=== PATIENT | female | born 1985 | race Two or more races ===

== ENCOUNTER 2019-01-26 10:55 | Inpatient (IN) | payer MEDICARE, MEDICAID ==
[2019-01-26] MEDS ORDERED: Meropenem 500 MG SDV ONE (11:17)
[2019-01-26] MEDS ORDERED: Dexamethasone 4 MG/ML SDV ONE (11:30)
[2019-01-26] MEDS ORDERED: Rocuronium 50 MG/5 ML Vial ONE ×2 (11:30)
[2019-01-26] MEDS ORDERED: Ondansetron 4 MG/2 ML SDV ONE (11:30)
[2019-01-26] MEDS ORDERED: Succinylcholine 200 MG/10 ML MDV ONE (11:30)
[2019-01-26] MEDS ORDERED: Propofol 200 MG/20 ML SDV ONE (11:30)
[2019-01-26] MEDS ORDERED: fentaNYL 100 MCG/2 ML SDV ONE (11:30)
[2019-01-26] MEDS ORDERED: Neostigmine Methylsulfate 1 MG/ML 5 ML Syringe ONE (11:30)
[2019-01-26] MEDS ORDERED: fentaNYL 250 MCG/5 ML SDV ONE ×2 (11:30)
[2019-01-26] MEDS ORDERED: Glycopyrrolate 0.2 MG/ML 5 ML MDV ONE (11:30)
[2019-01-26] MEDS ORDERED: Labetalol 20 MG/4 ML Syringe ONE (11:30)
[2019-01-26] MEDS ORDERED: cefOXitin 2 GM in Sodium Chloride 0.9% 50 ML IV ONE (12:00)
[2019-01-26] MEDS ORDERED: hydrOXYzine HCl 100 MG/2 ML SDV IM ONE (13:26)
[2019-01-26] MEDS ORDERED: diphenhydrAMINE 50 MG/ML SDV IVPUSH PRN ×2 (13:29→14:23)
[2019-01-26] MEDS ORDERED: Ondansetron 4 MG/2 ML SDV IVPUSH PRN ×2 (13:29→14:23)
[2019-01-26] MEDS ORDERED: Naloxone 0.4 MG/ML SDV IVPUSH PRN (13:29)
[2019-01-26] MEDS ORDERED: diphenhydrAMINE 25 MG Cap PO PRN (13:29)
[2019-01-26] MEDS ORDERED: Lactated Ringers 1,000 ML IV SCH (13:30)
[2019-01-26] MEDS ORDERED: HYDROmorphone/Normal Saline 15 MG/30 ML PCA IV PRN (13:30)
[2019-01-26] MEDS ORDERED: hydrOXYzine HCl 100 MG/2 ML SDV IM PRN (14:23)
[2019-01-26] MEDS ORDERED: Labetalol 20 MG/4 ML Syringe IVPUSH PRN (14:23)
[2019-01-26] MEDS ORDERED: Albuterol/Ipratropium 3.0-0.5 MG/3 ML Neb Soln INH PRN (14:23)
[2019-01-26] MEDS ORDERED: Metoclopramide 10 MG/2 ML SDV IVPUSH PRN (14:23)
[2019-01-26] MEDS: Dextrose 5%-Lactated Ringers 1,000 ML IV SCH ×2 (14:36→22:17)
[2019-01-26] MEDS ORDERED: Naloxone 0.4 MG/ML SDV IV PRN (14:48)
--- NOTE | 2019-01-26 15:10 | CRLCR ---
Indication: Central line placement Technique: Chest 1 view Comparison: None. Findings/Impression: Cardiovascular and mediastinum: Left IJ central line has been placed with the tip in the right atrium. The line should be retracted 4 cm to be in ideal position. Moderate cardiomegaly. Pulmonary vasculature within normal limits. Lungs and pleural space: Lungs are clear. No sign of infiltrate or mass. No sign of pleural effusion. No pneumothorax. Bones and soft tissues: No acute findings. Dictated by Thomas Wells MD @ 01/26/2019 3:10:02 PM Dictated by: Thomas Wells MD @ 01/26/2019 15:10:07 (Electronically Signed)
[2019-01-26] MEDS ORDERED: MVI, Adult with Vitamin K 10 ML, Thiamine 200 MG, Chromium/Copper/Mang/Selen/Zn 1 ML in... IV SCH ×4 (16:00)
[2019-01-26] MEDS: Pantoprazole 40 MG Vial IVPUSH SCH (16:33)
[2019-01-26] MEDS: Acetaminophen Soln 650 MG/20.3 ML UD Cup PO SCH ×2 (16:33→22:27)
[2019-01-26] MEDS: cefOXitin 2 GM in Sodium Chloride 0.9% 50 ML IV SCH ×2 (17:09→22:28)
[2019-01-26] MEDS: Heparin Sodium 5,000 Units/ML Vial SUBCUT SCH (18:07)
[2019-01-26] MEDS: Gabapentin 250 MG/5 ML Solution ML 470 ML Bottle PO SCH (20:24)
[2019-01-26] MEDS: traZODone 50 MG Tab PO SCH (20:25)
[2019-01-26] MEDS: risperiDONE 1 MG Tab PO SCH (20:25)
[2019-01-26] MEDS: Divalproex Sodium Delayed-Release 250 MG Tab.CR PO SCH (20:25)
[2019-01-27] MEDS ORDERED: Iopamidol 612 MG/ML 50 ML SDV PO STA (03:23)
[2019-01-27] MEDS: Dextrose 5%-Lactated Ringers 1,000 ML IV SCH ×2 (03:32→20:52)
[2019-01-27] MEDS: cefOXitin 2 GM in Sodium Chloride 0.9% 50 ML IV SCH ×4 (04:31→23:32)
[2019-01-27] MEDS: Acetaminophen Soln 650 MG/20.3 ML UD Cup PO SCH ×4 (04:31→23:19)
[2019-01-27] MEDS: Heparin Sodium 5,000 Units/ML Vial SUBCUT SCH ×2 (05:12→16:59)
--- NOTE | 2019-01-27 06:57 | CRLCR ---
INDICATION: History of Marti-en-Y gastric bypass. Recent small bowel resection for volvulus. Question postoperative leak. TECHNIQUE: Three erect images are acquired of the abdomen following oral contrast administration. FINDINGS: The initial image demonstrates tertiary wave contractures within barium filled distal esophagus. There is passage of contrast material from the gastric pouch into the Marti limb. The 2 subsequent images demonstrate free passage of contrast through the small intestine without evidence of leak or pathologic dilatation which would indicate obstruction. IMPRESSION: No leak identified. Dictated by Mikal Andre MD @ 01/27/2019 6:55:48 AM Dictated by: Mikal Andre MD @ 01/27/2019 06:55:55 (Electronically Signed)
[2019-01-27 08:18] LABS: HEMOGLOBIN A1C 5.6 % (4.5-6.2)
[2019-01-27] MEDS: Gabapentin 250 MG/5 ML Solution ML 470 ML Bottle PO SCH ×3 (08:31→21:00)
[2019-01-27] MEDS: Amphetamine/Dextroamphetamine Salts 10 MG Tab PO SCH ×2 (08:32→13:25)
[2019-01-27] MEDS: Sodium Ferric Gluconate Cmplex 250 MG in Sodium Chloride 0.9% 100 ML IV SCH (08:32)
[2019-01-27] MEDS: Docusate Sodium 100 MG Cap PO SCH ×2 (08:32→21:00)
[2019-01-27] MEDS: Celecoxib 200 MG Cap PO SCH (08:32)
[2019-01-27] MEDS: Divalproex Sodium Delayed-Release 250 MG Tab.CR PO SCH ×3 (08:32→21:01)
[2019-01-27] MEDS: risperiDONE 1 MG Tab PO SCH ×2 (08:33→21:01)
[2019-01-27] MEDS: SCOPOLAMINE PATCH CHECK TOP SCH (08:55)
[2019-01-27] MEDS ORDERED: MVI, Adult with Vitamin K 10 ML, Chromium/Copper/Mang/Selen/Zn 1 ML in Dextrose 5%-Lact... IV ONE ×3 (10:00)
[2019-01-27] MEDS: Potassium Phosphates 15 MMOLE in Sodium Chloride 0.9% 250 ML IV SCH ×3 (10:03→16:58)
[2019-01-27] MEDS: Pantoprazole 40 MG Vial IVPUSH SCH (15:36)
[2019-01-27] MEDS: traZODone 50 MG Tab PO SCH (21:01)
[2019-01-28] MEDS: Acetaminophen Soln 650 MG/20.3 ML UD Cup PO SCH ×4 (03:58→22:44)
[2019-01-28] MEDS: Heparin Sodium 5,000 Units/ML Vial SUBCUT SCH ×2 (05:22→17:32)
[2019-01-28] MEDS: Dextrose 5%-Lactated Ringers 1,000 ML IV SCH (07:28)
[2019-01-28] MEDS ORDERED: Ondansetron 4 MG Tab.DIS PO PRN (08:15)
[2019-01-28] MEDS ORDERED: Magnesium Hydroxide 400 MG/5 ML Susp 30 ML Cup PO ONE (09:00)
[2019-01-28] MEDS ORDERED: Cyanocobalamin (Vitamin B12) 1,000 MCG/ML SDV IM ONE (09:00)
[2019-01-28] MEDS: Amphetamine/Dextroamphetamine Salts 10 MG Tab PO SCH ×2 (09:18→14:23)
[2019-01-28] MEDS: Divalproex Sodium Delayed-Release 250 MG Tab.CR PO SCH ×3 (09:18→20:16)
[2019-01-28] MEDS: Celecoxib 200 MG Cap PO SCH (09:18)
[2019-01-28] MEDS: Gabapentin 250 MG/5 ML Solution ML 470 ML Bottle PO SCH ×3 (09:18→22:44)
[2019-01-28] MEDS: SCOPOLAMINE PATCH CHECK TOP SCH (09:19)
[2019-01-28] MEDS: risperiDONE 1 MG Tab PO SCH ×2 (09:19→20:16)
[2019-01-28] MEDS ORDERED: Bisacodyl 5 MG Tab PO ONE (10:00)
[2019-01-28] MEDS: Sodium Ferric Gluconate Cmplex 250 MG in Sodium Chloride 0.9% 100 ML IV SCH (10:29)
[2019-01-28] MEDS: Docusate Sodium 100 MG Cap PO SCH ×2 (10:29→20:16)
--- NOTE | 2019-01-28 12:20 | HP ---
HISTORY OF PRESENT ILLNESS: This is a 33-year-old transferred to us, status post Marti-en-Y gastric bypass, who has not had any followup regarding that since her first postoperative visit. She presents now with severe abdominal pain. She was seen in the [facility] and CT scan there showed a picture of volvulus with probable small bowel ischemia, and the patient was transferred to our ER by air this morning. The patient reports that she has had similar, but lesser intense episodes over the past several weeks. PHYSICAL EXAMINATION: On examination, the patient is alert, hemodynamically stable, and thoroughly uncomfortable with regard to her abdominal pain. The abdomen is somewhat distended and uncomfortable, particularly in the left mid and upper abdomen. LABORATORY DATA: Otherwise, labs show no major problems. PLAN: The plan will be to emergently take the patient to the operating room. We will plan a limited open laparotomy with reduction of the volvulus and bowel resection as indicated. Potential risks including bleeding, infection, leaks from various GI tract closures, problems with recurrence of the problem over time, as well as the possibility of cardiopulmonary, septic, or hemorrhagic complications leading to were discussed, and the patient wishes to proceed. We will obtain a full set of followup bariatric labs today and tomorrow as well, for getting the patient hopefully back on track in that regard. Gaurav Mcadams MD /[id number]
[2019-01-28] MEDS ORDERED: Sodium Chloride 0.9% 10 ML Syringe IV PRN (12:26)
--- NOTE | 2019-01-28 13:47 | PN ---
DATE OF SERVICE: 01/28/2019 SUBJECTIVE: Adela is postop day 3. She states her pain is controlled. Vital signs, temp max of 99.6. Oral intake 2210. Urine output 1965 via Sultana catheter. REVIEW OF SYSTEMS: Remainder of review of systems negative for any pertinent positives and negatives. OBJECTIVE: GENERAL: Adela Ford is a 33-year-old female. VITAL SIGNS: TPR is 98.8, 82, 14. Blood pressure 136/61. HEENT: Negative. NECK: Supple. HEART: Regular rate and rhythm. LUNGS: Clear. ABDOMEN: Dressing dry and intact. Abdominal binder is on. EXTREMITIES: Without peripheral edema. ASSESSMENT: 1. Insertion of left triple-lumen catheter. 2. Exploratory laparotomy with reduction of small bowel volvulus and closure of internal hernia. 3. Revision of a jejunojejunostomy component of the Marti-en-Y gastric bypass surgery, repair of incarcerated incisional hernia, excision of eroded intraperitoneal mesh and tube decompression of small bowel and placement of Interceed mesh. Date of surgery 01/26/2019. PLAN: Type and screen for 2 units of packed red blood cells in a.m. Check CBC, CMP, mag, and phos in a.m. Saline lock IV. Discontinue Sultana catheter. Milk of Magnesia 30 mL now, followed in 1 hour by Dulcolax 2 tabs. Step 3 gastric bypass diet. Discontinue CLINICAL DATA ASSOCIATE Dilaudid 2 mg 1 to 2 every 4 hours p.r.n. pain. May shower. We will evaluate p.r.n. or in a.m. Karis Arce PA-C /[id number]
[2019-01-28] MEDS: HYDROmorphone 2 MG Tab PO PRN ×2 (14:52→20:01)
[2019-01-28] MEDS ORDERED: MVI, Adult with Vitamin K 10 ML, Thiamine 200 MG, Chromium/Copper/Mang/Selen/Zn 1 ML in... IV SCH ×4 (16:00)
[2019-01-28] MEDS: Pantoprazole 40 MG Delayed-Release Granules 1 Packet PO SCH (17:32)
[2019-01-28] MEDS: traZODone 50 MG Tab PO SCH (20:09)
[2019-01-29] MEDS: Heparin Sodium 5,000 Units/ML Vial SUBCUT SCH ×2 (05:39→17:10)
[2019-01-29] MEDS: Acetaminophen Soln 650 MG/20.3 ML UD Cup PO SCH ×4 (05:39→21:41)
[2019-01-29] MEDS: HYDROmorphone 2 MG Tab PO PRN ×5 (05:40→22:27)
--- NOTE | 2019-01-29 08:14 | PN ---
DATE OF SERVICE: 01/27/2019 The patient is postop day 1 from reduction of volvulus, as well as revision of jejunojejunostomy and stricturoplasty. Postoperatively, doing well. Urine output has been satisfactory. Sultana catheter will come out today, and I will back down on the IV rate and go up to a step 2 diet. We will leave her on the ELECTRIC MELT OPERATOR for today and probably switch over to oral pain medication tomorrow. Of note, her phosphate is on the low end of normal and just based on possible refeeding syndrome, we will give her some K-Phos IV today. Ferritin is quite low at 12, and she will receive 2 doses of the ferric gluconate 250 mg, 1 dose today and 1 dose tomorrow; and folate is also low, and we will replenish her with some IV trace elements during the hospitalization, and Dietary will be seeing the patient to try to get somewhat more back on track in terms of her postoperative bariatric status. Gaurav Mcadams MD /[id number]
[2019-01-29] MEDS: Celecoxib 200 MG Cap PO SCH (08:27)
[2019-01-29] MEDS: Gabapentin 250 MG/5 ML Solution ML 470 ML Bottle PO SCH ×3 (08:27→22:27)
[2019-01-29] MEDS: risperiDONE 1 MG Tab PO SCH ×2 (08:27→21:41)
[2019-01-29] MEDS: Divalproex Sodium Delayed-Release 250 MG Tab.CR PO SCH ×3 (08:27→21:41)
[2019-01-29] MEDS: Docusate Sodium 100 MG Cap PO SCH ×2 (08:28→21:41)
[2019-01-29] MEDS: Amphetamine/Dextroamphetamine Salts 10 MG Tab PO SCH ×2 (08:32→13:48)
[2019-01-29] MEDS: Bisacodyl 5 MG Tab PO SCH ×2 (09:48→21:39)
[2019-01-29] MEDS ORDERED: Sodium Ferric Gluconate Cmplex 250 MG in Sodium Chloride 0.9% 100 ML IV ONE (10:00)
[2019-01-29] MEDS: Pantoprazole 40 MG Delayed-Release Granules 1 Packet PO SCH (17:10)
--- NOTE | 2019-01-29 18:40 | PN ---
DATE OF SERVICE: 01/29/2019 SUBJECTIVE: Adela has not had her bowel movement yet. Hemoglobin this morning was 7.6. Vital signs have been stable. Oral intake 1650 and urine output 4300. She has had 100% of breakfast, lunch; dinner was not recorded. REVIEW OF SYSTEMS: Remainder of review of systems negative for any pertinent positives and negatives. OBJECTIVE: GENERAL: Adela Ford is a 33-year-old female. She is alert and orientated. VITAL SIGNS: TPR 98.6, 90, 16, blood pressure 132/69. HEENT: Negative. NECK: Supple. HEART: Regular rate and rhythm. LUNGS: Clear. ABDOMEN: Aquacel dressing was removed. Indira intact. Incision healing well. Abdominal binder is on. EXTREMITIES: Without peripheral edema. ASSESSMENT: 1. Iron deficiency anemia, low ferritin, is requiring IV iron gluconate 2 doses, will receive 3rd. 2. Insertion of left triple-lumen catheter. 3. Exploratory laparotomy with reduction of small bowel volvulus and closure of internal hernia, revision of jejunojejunostomy component of the Marti-en-Y gastric bypass surgery, incarcerated incisional hernia, excision of eroded intraperitoneal mesh and tube decompression of the small bowel and placement of Interceed mesh. Date of surgery 01/26/2019. PLAN: 1. Give 1 dose of ferrous gluconate IV. 2. Check CBC in a.m. 3. Dulcolax 2 tabs b.i.d. scheduled until BM. 4. Shower. 5. Follow up scheduled for 02/02/2019 at [facility] at 10 a.m. 6. Dilaudid 2 mg p.o. q.4 hours p.r.n. was called into her pharmacy to obtain prior auth from insurance company and #42 tabs were given. 7. We will evaluate p.r.n. or in a.m. Karis Arce PA-C /[id number]
[2019-01-29] MEDS: traZODone 50 MG Tab PO SCH (21:41)
[2019-01-30] MEDS: Acetaminophen Soln 650 MG/20.3 ML UD Cup PO SCH (03:52)
[2019-01-30] MEDS: Heparin Sodium 5,000 Units/ML Vial SUBCUT SCH (05:50)
[2019-01-30] MEDS: HYDROmorphone 2 MG Tab PO PRN (07:12)
[2019-01-30] MEDS: Celecoxib 200 MG Cap PO SCH (08:24)
[2019-01-30] MEDS: Docusate Sodium 100 MG Cap PO SCH (08:24)
[2019-01-30] MEDS: Amphetamine/Dextroamphetamine Salts 10 MG Tab PO SCH (08:24)
[2019-01-30] MEDS: Divalproex Sodium Delayed-Release 250 MG Tab.CR PO SCH (08:25)
[2019-01-30] MEDS: Bisacodyl 5 MG Tab PO SCH (08:25)
[2019-01-30] MEDS: risperiDONE 1 MG Tab PO SCH (08:25)
[2019-01-30] MEDS: Gabapentin 250 MG/5 ML Solution ML 470 ML Bottle PO SCH (08:36)
--- NOTE | 2019-02-01 11:57 | DISCH ---
FINAL DIAGNOSES: 1. Partial small bowel obstruction secondary to small bowel volvulus. 2. Ischemic changes to jejunojejunostomy. 3. Incarcerated incisional hernia. 4. Eroded intraperitoneal mesh. 5. Distended proximal small bowel. 6. Limited peripheral venous access. OTHER DIAGNOSES: Include: 1. Bariatric surgery status, status post Marti-en-Y gastric bypass. 2. History of asthma. 3. History of hypertension. 4. History of depression. 5. History of fibromyalgia. OPERATIVE PROCEDURES: These were on 01/26/2019. 1. Insertion of left internal jugular vein triple-lumen catheter. 2. Exploratory laparotomy with: a. Reduction of small bowel volvulus and closure of internal hernia. b. Revision of jejunojejunostomy component of Marti-en-Y gastric bypass. c. Repair of incarcerated incisional hernia. d. Excision of eroded intraperitoneal mesh. e. Enterotomy for tube decompression of proximal small bowel. f. Placement of Interceed mesh to limit recurrent adhesion formation between pelvic and abdominal wall and underlying viscera. SUMMARY: This is a 33-year-old, several years status post Marti-en-Y gastric bypass, who was seen once in followup for her suture removal, but had not been seen since that time. She presented to the emergency room in [facility], where she was felt to have most likely ischemic bowel related to a volvulus. She was transported by air and, after rapid workup, underwent exploratory laparotomy. All the bowel was viable, but she did have a significant volvulus, and there were some significant ischemic changes to jejunojejunostomy. This was, therefore, excised and revised. She also had an incisional hernia repair. Had previous periumbilical hernia repair, had some mesh that had eroded into the interior of the abdominal cavity. She also had a separate trocar type hernia more in the midline incision area. She had limited peripheral venous access, and an internal jugular vein catheter was placed. This was removed at the time of discharge. Plan at discharge would be to start her on a step 3 diet x2 weeks and then step 4 diet thereafter. She will be following up with Karis Arce at [facility] in [place] next Friday02/02/2019 at 12:00 noon. Medications will be same as previous plus Celebrex 200 mg p.o. daily x30 days; Dilaudid 2 to 4 mg p.o. q.4 hours p.r.n. pain, #50; Tylenol 650 p.o. q.4 hours p.r.n. pain; and she will be instructed to take 2 children's complete vitamins daily. She also requested a prescription for a cane to assist in walking.
--- NOTE | 2019-02-04 08:23 | OR ---
DATE OF PROCEDURE: 01/26/2019 SURGEON: Gaurav Mcadams MD PREOPERATIVE DIAGNOSES: 1. Limited peripheral venous access. 2. Acute abdomen with a picture of possible ischemic bowel related to volvulus, status post Marti-en-Y gastric bypass. POSTOPERATIVE DIAGNOSES: 1. Limited peripheral venous access. 2. Partial small bowel obstruction secondary to small bowel volvulus. 3. Ischemic changes at jejunojejunostomy. 4. Incarcerated incisional hernia. 5. Eroded intraperitoneal mesh. 6. Distended proximal small bowel. OPERATIVE PROCEDURES: 1. Insertion of left internal jugular vein triple-lumen catheter (36227). 2. Exploratory laparotomy with: a. Reduction of small bowel volvulus and closure of internal hernia (63756). b. Revision of jejunojejunostomy component of Marti-en-Y gastric bypass (58379). c. Repair of incarcerated incisional hernia (36030). 3. Excision of eroded intraperitoneal mesh (92887). 4. Enterotomy for tube decompression of proximal small bowel (43304). 5. Placement of Interceed mesh to limit recurrent adhesion formation between pelvic and abdominal wall and underlying viscera. ANESTHESIA: General. LOCKSMITH HELPER: Karis Arce PA-C. INDICATION FOR PROCEDURE: A 33-year-old status post Marti-en-Y gastric bypass several years ago presenting to the emergency room at [facility] in [place] with a picture of an acute abdomen. The workup there was suggestive of a small bowel volvulus with some bowel ischemia, and with lack of bariatric surgical coverage at [place], the patient was transferred here by air. In the emergency room, the patient appeared to be in a fair bit of discomfort, but otherwise, hemodynamically stable and after initial resuscitation, plan was to proceed with an exploratory laparotomy with reduction of volvulus and bowel resection as indicated. Potential risks including bleeding, infection, injury to underlying viscera, leaks from any GI tract closures, as well as the possibility of cardiopulmonary, septic, or hemorrhagic complications leading to were discussed, and the patient wishes to proceed. DETAILS OF PROCEDURE: The patient was taken to the operating room and placed in a supine position. After general endotracheal anesthesia was induced, the upper chest and neck areas were prepped and draped. She was felt to have quite limited peripheral venous access per Anesthesia. Initially, the left subclavian area was anesthetized with 1% lidocaine mixed with Marcaine. Vein could be cannulated, but at no point, was a wire manipulated through the area of the subclavian innominate junction. Given this the internal jugular vein on the left side was cannulated, a guidewire was able to be passed from that point into the superior vena cava. Over this, a triple-lumen catheter was positioned, good inflow and outflow were noted through the catheter, ports were flushed with heparinized saline, and catheter was sutured to skin with some 3-0 silk stitch. Subsequent chest x-ray showed good catheter position without complications. At this point, a Sultana catheter had been placed and the abdomen prepped and draped. A midline incision from the umbilicus roughly a handsbreadth toward the xiphoid was made and carried down through the full thickness of the abdominal wall. Upon entering the pelvic cavity, there was some thin straight type fluid present, but not any blood or purulent material. The patient did have significant amount of small bowel that was somewhat dusky in appearance. The point of volvulus was between the leaves of the jejunojejunostomy. This was reduced from a [id number]-ra-[id number] manner which resulted in decompression of the vascular compromise. The bowel at the jejunojejunostomy appeared to be persistently somewhat edematous and injured in appearance, due to the ischemic event, and at this point, we elected to revise the jejunojejunostomy. The 3 components of that were divided flush with the anastomosis with DARLING phyllis and the underlying mesentery divided with DARLING phyllis as well, and the specimen was then delivered from the field. The bowel proximal to the point of the obstruction in the biliopancreatic limb especially was markedly distended and enterotomy was placed into the biliopancreatic limb, a Kirk Sump tube placed, and a large volume of air and fluid was removed. This also helped decompress the bypassed stomach as it continued to empty into the duodenum and the proximal jejunum while the evacuation process was ongoing. Once this was accomplished, then initial [id number] enteroenterostomy between what had been the end of the biliopancreatic limb to the beginning of the common limb was made with internal firing of the Endo-DARLING 60 mm stapler, closed transversely with the same stapler, and the angles of anastomosis reinforced with some 3-0 Vicryl stitch. The Marti-en-Y anatomy was then reestablished with anastomosis of the Marti limb after resection of 3 cm of this, which was somewhat ischemic in appearance, and this was accomplished roughly 20 cm distal to the first anastomosis performed today and with the same sequence. Once these anastomoses were completed, both mesenteric defects were closed with 2-0 silk stitch to provide some permanency of that. During the entrance of the abdomen, the patient was noted to have incarcerated incisional hernia at one of the trocar sites. This contained some preperitoneal fat, which was excised. The patient had previously had periumbilical hernia repaired with what appeared to be a mesh plug. This had eroded into the intraperitoneal location and was somewhat adherent to small bowel. This was felt best to be excised and the intraperitoneal mesh was then excised with electrocautery and delivered from the field. At this point, no further problems were noted. The abdomen was irrigated with antibiotic- containing saline solution. The patient was felt to be at very high risk for development of adhesions between the viscera and the pelvic and abdominal robles and so an Interceed mesh was placed across the pelvic wall up against the abdominal wall to displace the bowel from those surfaces. The midline fascia was then approximated with #2 Vicryl stitch, the subcutaneous tissue with 2 layers of 3-0 and 4-0 Vicryl stitch, and the skin with phyllis. The patient had received bilateral transversus abdominis plane blocks and also had the incision injected with 0.5% Marcaine mixed with lidocaine, and the patient was taken to the recovery room in satisfactory condition. Physician educational assistant teacher, Karis Arce, played an essential role in assisting in this case helping to position the patient, retract structures as needed, as well as suturing and cutting sutures when indicated. Her presence improved patient safety and decreased operative time. Gaurav Mcadams MD /[id number]
== END 2019-01-30 09:46 | disposition home or self-care (01) | DRG 327 ==
LOC: JP.ED 10:55 → JP.SDS 11:14 → JP.ICU 13:10 → UNDOADMIN 14:10 → JP.ICU 01-27 09:45 → JP.2SS 01-27 09:45 → UNDODISIN 01-30 09:46
PROVIDERS: ADMIT Surgery; ATTEND Surgery
PROC: 0DS80ZZ Reposition Small Intestine, Open Approach (ICD-10-PCS; principal; 2019-01-26)
PROC: 0D160ZA Bypass Stomach to Jejunum, Open Approach (ICD-10-PCS; 2019-01-26)
PROC: 0WQF0ZZ Repair Abdominal Wall, Open Approach (ICD-10-PCS; 2019-01-26)
PROC: 0D980ZZ Drainage of Small Intestine, Open Approach (ICD-10-PCS; 2019-01-26)
PROC: 0WPF0JZ Removal of Synthetic Substitute from Abdominal Wall, Open Approach (ICD-10-PCS; 2019-01-26)
PROC: 0DB80ZZ Excision of Small Intestine, Open Approach (ICD-10-PCS; 2019-01-26)
PROC: 3E0M05Z Introduction of Adhesion Barrier into Peritoneal Cavity, Open Approach (ICD-10-PCS; 2019-01-26)
PROC: 02H633Z Insertion of Infusion Device into Right Atrium, Percutaneous Approach (ICD-10-PCS; 2019-01-26)
DX: R10.9 Unspecified abdominal pain (principal); K56.2 Volvulus; K43.0 Incisional hernia with obstruction, without gangrene; K55.9 Vascular disorder of intestine, unspecified; G47.33 Obstructive sleep apnea (adult) (pediatric); Z86.73 Personal history of transient ischemic attack (TIA), and cerebral infarction without residual deficits; T83.718A Erosion of other implanted mesh to organ or tissue, initial encounter; Z68.41 Body mass index [BMI] 40.0-44.9, adult; K63.89 Other specified diseases of intestine; J45.909 Unspecified asthma, uncomplicated; I10 Essential (primary) hypertension; F32.9 Major depressive disorder, single episode, unspecified; M79.7 Fibromyalgia; D50.9 Iron deficiency anemia, unspecified; E66.01 Morbid (severe) obesity due to excess calories; Z98.84 Bariatric surgery status
CPT/HCPCS: 71045; 88302; 88305; J0171; J0330; J0694; J1100 ×2; J1170; J1642; J2185; J2405; J2704; J2710; J2795; J3010 ×3; J3410; J3490 ×2; J7050 ×2; 36415; 74240; 80053; 82306; 82525; 82607; 82728; 82746; 83036; 83735; 83880; 84100; 84425; 84590; 84630; 85027; 86850; 86900; 86901; 86920; 86922; 97116-GP; 97161-GP; 97530-GP; 97535-GP; A9270-GY; C9113; J1644; J2916; J3411; J3420; J7030; J7042; Q9967